=== PATIENT | female | born 1980 | race Caucasian/White ===

== ENCOUNTER → 2017-03-10 | Outpatient (CLI) | payer BC ==
[2012-10-26 05:30] VITALS: BP 103/56
[~2017-03-10] MED LIST: CEPHALEXIN500 M1 PO; PYRIDIUM200 M1 PO
== END ==
LOC: LAB 13:22
DX: R09.89 Other specified symptoms and signs involving the circulatory and respiratory systems (principal)

== ENCOUNTER 2019-05-07 08:56 | Emergency (ER) | payer BC ==
[~2019-05-07] VITALS: Ht 172.7 cm; Wt 118.2 kg
[2019-05-07] MEDS ORDERED: WELLBUTRIN XL150 M2 PO (09:24)
[2019-05-07] MEDS ORDERED: DULOXETINE60 MG PO (09:24)
[2019-05-07] MEDS ORDERED: ITRACONAZOLE100 MG PO (09:24)
[2019-05-07] MEDS ORDERED: CELEBREX 200MG200 MG PO (09:24)
[2019-05-07] MEDS ORDERED: PRENA1 CHEW1 CT1 PO (09:25)
[2019-05-07 09:48] LABS: EOS # 0.2 (0.04-0.40); EOS % 1.8 % (1.0-5.0); HEMATOCRIT 39.8 % (37.0-47.0); HEMOGLOBIN 12.8 g/dL (12.5-16.0); LYMPH# 1.8 (1.50-4.00); MEAN CELL VOLUME 89 fl (78-100); MEAN CORPUSCULAR HEMOGLOBIN 29 pg (27-31); MEAN CORPUSCULAR HGB CONC 32 g/dL (33-37); MONO # 0.5 (0.20-0.80); NEU # 6.2 (1.40-6.50); PLATELET COUNT 357 K/mm3 (130-400); RED BLOOD COUNT 4.47 M/mm3 (4.10-5.30); RED CELL DISTRIBUTION WIDTH 13.8 % (11.5-14.5); WHITE BLOOD COUNT 8.8 K/mm3 (4.8-10.8)
[2019-05-07 09:49] LABS: ALBUMIN 3.9 g/dL (3.5-5.0); POTASSIUM 4.1 mmol/L (3.5-5.1)
[2019-05-07 09:50] LABS: CALCIUM 9.3 mg/dL (8.3-10.5)
[2019-05-07 09:51] LABS: TOTAL PROTEIN 7.2 g/dL (6.4-8.3)
[2019-05-07 09:54] LABS: TOTAL BILIRUBIN 0.3 mg/dL (0.2-1.2)
[2019-05-07] MEDS ORDERED: MIRALAX17 GM PO (10:43)
[2019-05-07 10:53] VITALS: BP 140/70
== END 2019-05-07 10:49 | disposition home or self-care (01) ==
LOC: ED 08:56
PROVIDERS: Nurse Practitioner Primary Care
DX: K59.00 Constipation, unspecified (principal); J90 Pleural effusion, not elsewhere classified; Z90.710 Acquired absence of both cervix and uterus
CPT/HCPCS: J2270; J2405; Q9965; Q9967

== ENCOUNTER → 2024-05-08 | Outpatient (CLI) | payer BC ==
[~2024-05-08] MED LIST changes: +CELEBREX 200MG200 MG PO; +DULOXETINE60 MG PO; +ITRACONAZOLE100 MG PO; +MIRALAX17 GM PO; +PRENA1 CHEW1 CT1 PO; +WELLBUTRIN XL150 M2 PO
[2024-05-08 15:30] LABS: BASO # 0.01 K/mm3 (0.02-0.10); EOS # 0.12 K/mm3 (0.04-0.40); EOS % 1.9 % (1.0-5.0); HEMATOCRIT 45.4 % (37.0-47.0); HEMOGLOBIN 15.3 g/dL (12.5-16.0); LYMPH# 2.14 K/mm3 (1.50-4.00); MEAN CELL VOLUME 91 fl (78-100); MEAN CORPUSCULAR HEMOGLOBIN 31 pg (27-31); MEAN CORPUSCULAR HGB CONC 34 g/dL (33-37); MEAN PLATELET VOLUME 8.6 fl (7.4-10.4); MONO # 0.53 K/mm3 (0.20-0.80); NEU # 3.46 K/mm3 (1.40-6.50); PLATELET COUNT 312 K/mm3 (130-400); RED CELL DISTRIBUTION WIDTH 11.6 % (11.5-14.5); WHITE BLOOD COUNT 6.3 K/mm3 (4.8-10.8)
[2024-05-08 15:36] LABS: ALBUMIN 4.4 g/dL (3.5-5.0)
[2024-05-08 15:37] LABS: CALCIUM 9.9 mg/dL (8.3-10.5)
[2024-05-08 15:39] LABS: TOTAL PROTEIN 7.7 g/dL (6.4-8.3)
[2024-05-08 15:41] LABS: TOTAL BILIRUBIN 0.4 mg/dL (0.2-1.2)
== END ==
LOC: LAB 15:16
PROVIDERS: Nurse Practitioner Family
DX: R10.9 Unspecified abdominal pain (principal)

== ENCOUNTER → 2024-05-09 | Outpatient (CLI) | payer BC | LOC: RAD 11:19 | DX: R10.9 Unspecified abdominal pain (principal) ==